=== PATIENT | female | born 1945 | race Caucasian/White ===

== ENCOUNTER 2017-01-30 16:19 | Emergency (ER) | payer MEDICARE, BC ==
[~2017-01-30] VITALS: Ht 157.5 cm; Wt 58.5 kg
--- NOTE | 2017-01-30 17:40 | NUR ---
DR HERNANDEZ AT THE BEDSIDE FOR EVAL AND EXAM.
[2017-01-30 17:58] LABS: BASOPHILS % (AUTO) 0.5 % (0.0-2.0); EOSINOPHILS # (AUTO) 0.6 K/uL (0.0-0.7); EOSINOPHILS % (AUTO) 6.7 % (0.0-7.0); HEMATOCRIT 40.6 % (37-47); HEMOGLOBIN 13.5 G/DL (12.0-16.0); LYMPHOCYTES # (AUTO) 2.5 K/UL (0.8-4.8); LYMPHOCYTES % (AUTO) 26.6 % (20.5-51.5); MEAN CORPUSCULAR HEMOGLOBIN 28.8 UUG (27.0-31.0); MEAN CORPUSCULAR HGB CONC 33 g/dL (32.0-37.0); MEAN CORPUSCULAR VOLUME 86.9 FL (81.0-99.0); MONOCYTES # (AUTO) 0.6 K/UL (0.1-1.30); MONOCYTES % (AUTO) 6.4 % (0.0-11.0); NEUTROPHILS # (AUTO) 5.9 K/UL (1.8-8.9); NEUTROPHILS % (AUTO) 59.8 % (38.5-71.5); PLATELET COUNT (AUTO) 298 K/UL (150-450); RED BLOOD CELL COUNT(AUTO) 4.67 MIL/UL (4.2-5.4); WHITE BLOOD COUNT (AUTO) 9.6 K/UL (4.0-11.2)
[2017-01-30 18:06] LABS: POTASSIUM 4.7 mmol/L (3.5-5.1)
[2017-01-30 18:11] LABS: BILIRUBIN,DIRECT 0.1 mg/dL (0.0-0.2); BILIRUBIN,TOTAL 0.4 mg/dL (0.2-1.0)
--- NOTE | 2017-01-30 19:00 | NUR ---
[facility]... pt awake, alert, oriented x 4, speaking with ERMD... will continue to monitor for pain, comfort, and safety...
--- NOTE | 2017-01-30 19:15 | NUR ---
Patient discharged to home in stable conditon. Written and verbal after care instructions given. Patient verbalizes understanding of instructions. pt walked out of ER unassisted with belongings and family at side... provided pt with copy of all labs, and CD with CT images...
[2017-01-30 19:26] VITALS: BP 115/73
== END 2017-01-30 19:31 | disposition home or self-care (01) ==
LOC: ER 16:25
DX: M54.12 Radiculopathy, cervical region (principal); I48.91 Unspecified atrial fibrillation; R51 Headache
CPT/HCPCS: 36415; 70030-TC; 70450; 71010; 72125; 85025; 85730; 93005; A4663